=== PATIENT | female | born 1995 | race Caucasian/White ===

== ENCOUNTER 2019-09-29 00:37 | Emergency (ER) | payer MEDICAID ==
[~2019-09-29] VITALS: Ht 167.6 cm; Wt 68.2 kg
[2019-09-29] MEDS ORDERED: ACETAMINOPHEN 325 MG TABLET PO ONE (01:45)
[2019-09-29] MEDS ORDERED: ONDANSETRON HCL 4 MG TABLET PO ONE (01:45)
[2019-09-29] MEDS ORDERED: LIDOCAINE 1% 10 ML VIAL INJ ONE (02:15)
[2019-09-29 03:14] VITALS: BP 128/82
[2019-09-29] MEDS ORDERED: PERTUSS(ACELL),DIPH,TET VAC/PF 0.5 ML VIAL IM ONE (03:30)
== END 2019-09-29 03:36 | disposition home or self-care (01) ==
LOC: EMS 00:39
DX: S61.223A Laceration with foreign body of left middle finger without damage to nail, initial encounter (principal); S09.90XA Unspecified injury of head, initial encounter; J45.909 Unspecified asthma, uncomplicated; F17.210 Nicotine dependence, cigarettes, uncomplicated; V49.9XXA Car occupant (driver) (passenger) injured in unspecified traffic accident, initial encounter; Y93.89 Activity, other specified; Y92.488 Other paved roadways as the place of occurrence of the external cause; Y99.8 Other external cause status
CPT/HCPCS: 12041; 70450; 90471; 90715; 99284; J3490; Q0162; 12001